=== PATIENT | male | born 1990 | race Caucasian/White ===

== ENCOUNTER 2016-11-18 07:05 | Emergency (ER) | payer OTHER ==
[2016-11-18 07:27] VITALS: BP 141/99; PULSE 73; RESP 14; TEMP 97.5; O2SAT 95
--- NOTE | 2016-11-18 07:39 | UCPHY ---
H & P Patient Type: New Chief Complaint Nursing Narrative: PT REPORTS BILATERAL EAR PAIN SINCE SWIMMING 2 DAYS AGO. PT REPORTS SHOOTING PAIN IN RIGHT EAR THIS AM. HPI/ROS: Chief complaint: Bilateral ear pain HPI: 21 for about presenting with bilateral ear pain, right greater than left past 2 days. Patient states that he has also had decreased hearing in both his ears and thinks he might have your axilla. He states that 2 days ago so he has had worse pain is rider since that time. He did put in some rubbing alcohol and vinegar without any relief. Patient also states that he used a Q-tip without any relief as well. No fevers or chills. Has had some decreased hearing bilaterally. No jaw pain. No headache. No nausea or vomiting. ROS: 10 point Review of Systems is negative except as noted in the HPI. Past medical history: None Medications: None Allergies: None Social history: Nonsmoking, rare alcohol Physical exam: General: Awake, alert, no acute distress Ears: He has bilateral cerumen impactions. Once cleared was noted that his right tympanic membrane was erythematous and bulging with an effusion. Left TM is normal. Neck: Supple, no lymphadenopathy Skin: No rash - Personal History Current Tetanus Diphtheria and Acellular Pertussis (TDAP): Unsure - Medical/Surgical History Hx Asthma: No Hx Chronic Respiratory Disease: No Hx Diabetes: No Hx Cardiac Disease: No Hx Renal Disease: No Hx Cirrhosis: No Hx Alcoholism: No Hx HIV/AIDS: No Hx Splenectomy or Spleen Trauma: No Other PMH: DENIES - Family History Significant Family History: No pertinent family hx - Social History Smoking Status: Never smoked Constitutional: Initial Vital Signs Temperature (C) 36.4 C 11/18/16 07:22 Heart Rate 73 11/18/16 07:22 Respiratory Rate 14 11/18/16 07:22 Blood Pressure 141/99 H 11/18/16 07:22 O2 Sat (%) 95 11/18/16 07:22 O2 Delivery Mode Room Air Allergies/Adverse Reactions: No Known Allergies Allergy (Unverified 11/18/16 07:23) Home Medications: Medication Instructions Recorded Amoxicillin 500 mg PO TID 10 Days 11/18/16 Omeprazole 11/18/16 Medical Decision Making Procedures: Procedure: Cerumen removal. After a physical exam was performed cerumen needed to be removed from the patient's ear canal. The indication of the procedure was cerumen impaction and inability to complete the ear exam. The procedure was performed with warm water irrigation. The patient tolerated the procedure well. The procedure was performed by myself. ED Course/Re-evaluation: Patient has a cerumen impaction with a right otitis media. Oral antibiotics have been prescribed. I have given her for outpatient follow-up. Departure - Departure Disposition: Home, Routine, Self-Care Clinical Impression: Otitis media, Cerumen impaction Condition: Good Instructions: Cerumen Impaction (ED), Otitis Media (ED) Additional Instructions: You may use Ceruminex or other similar ear drops to treat your ear wax. Take her full course of antibiotics for your ear infection. Follow up with primary care in 3-4 days if symptoms are not improving. Referrals: NONE *PRIMARY CARE P,. [Primary Care Provider] - As per Instructions Lizzeth Meng MD [[facility] [place] Primary Care Provider] - As per Instructions Prescriptions: Amoxicillin 500 mg PO TID 10 Days - PQRS PQRS Measurement: NA
== END 2016-11-18 07:46 | disposition home or self-care (01) ==
LOC: CED 07:05
DX: H61.23 Impacted cerumen, bilateral (principal); H66.91 Otitis media, unspecified, right ear
CPT/HCPCS: 69210-PO; 99204-PO; G0463-PO